=== PATIENT | female | born 1980 | race Caucasian/White ===

== ENCOUNTER 2016-10-12 16:44 | Emergency (ER) | payer SELFPAY ==
[2016-10-12 17:29] LABS: Basophils % (Auto) 0.2 % (0.0-1.8); Eosinophils % (Auto) 0.3 % (0.0-4.3); Hematocrit 40.7 % (30.3-42.9); Hemoglobin 13.6 gm/dl (10.1-14.3); Mean Corpuscular HGB Conc 33 % (30-34); Mean Corpuscular Hemoglobin 33 pg (28-32); Mean Corpuscular Volume 98 fl (79-97); Platelet Count 349 K/mm3 (140-440); Red Blood Count 4.16 M/mm3 (3.65-5.03); Red Cell Distribution Width 13.3 % (13.2-15.2); White Blood Count 12.4 K/mm3 (4.5-11.0)
[2016-10-12 17:40] LABS: BUN/Creatinine Ratio 8.88; Blood Urea Nitrogen 8 mg/dL (7-17); Calcium 9.6 mg/dL (8.4-10.2); Carbon Dioxide 26 mmol/L (22-30); Glucose 133 mg/dL (65-100)
[2016-10-12 17:41] LABS: Anion Gap 17 mmol/L; Chloride 95.5 mmol/L (98-107); Potassium 3.4 mmol/L (3.6-5.0); Sodium 135 mmol/L (137-145)
[2016-10-12] MEDS ORDERED: NACL 0.9% 1000 ML 1,000 ML IV ONE (22:59)
--- NOTE | 2016-10-12 23:03 | Emergency Department Report ---
HPI - General Chief Complaint: Chest Pain Time Seen by Provider: 10/12/16 22:39 - HPI HPI: This is a 35-year-old female presents to the emergency department by EMS from home with complaint of some midsternal chest pain and some shortness of breath that began earlier this morning. The patient says that she has been having this problem over the past 3-4 weeks but normally it is just very small quick spells. She denies any nausea, vomiting, fever, diaphoresis. She does not have any past medical or surgical history. She did not take anything for symptoms prior to presentation. She did not receive anything in route by EMS. Recent travel or sick contacts at home. She denies tobacco or drug abuse. Patient does have some anxiety and stress in her life right now as her mother is currently sick and in [place] with no one to take care of her and her grandmother is starting to deal with Alzheimer's dementia. ED Past Medical Hx - Past Medical History Hx Hypertension: No Hx Diabetes: No Hx Deep Vein Thrombosis: No Hx Renal Disease: No Hx Sickle Cell Disease: No Hx Seizures: No Hx Asthma: No Hx HIV: No - Social History Smoking Status: Never Smoker Substance Use Type: None ED Review of Systems ROS: Stated complaint: ANXIETY/CHEST PAIN Other details as noted in HPI Comment: All other systems reviewed and negative Constitutional: denies: chills, fever Eyes: denies: eye pain, eye discharge, vision change ENT: denies: ear pain, throat pain Respiratory: shortness of breath. denies: cough Cardiovascular: chest pain. denies: palpitations Gastrointestinal: denies: abdominal pain, nausea, diarrhea Genitourinary: denies: urgency, dysuria, discharge Musculoskeletal: denies: back pain, joint swelling, arthralgia Skin: denies: rash, lesions Neurological: denies: headache, weakness, paresthesias Psychiatric: anxiety. denies: suicidal thoughts Physical Exam - Physical Exam Vital Signs: Vital Signs 10/12/16 10/12/16 10/12/16 16:58 22:29 22:31 Temperature 98.1 F 98.2 F 98.1 F Pulse Rate 122 H 105 H 107 H Respiratory 22 20 19 Rate Blood Pressure 154/111 152/111 Blood Pressure 152/111 [Left] O2 Sat by Pulse 100 99 98 Oximetry Physical Exam: GENERAL: The patient is well-developed well-nourished. Patient appears slightly anxious. HEENT: Normocephalic. Atraumatic. Extraocular motions are intact. Patient has moist mucous membranes. Pupils equal reactive to light bilaterally. NECK: Supple. Trachea is midline. CHEST/LUNGS: Clear to auscultation. There is no respiratory distress noted. HEART/CARDIOVASCULAR: Regular. There is mild tachycardia. There is no gallop rub or murmur. ABDOMEN: Abdomen is soft, nontender. Patient has normal bowel sounds. There is no abdominal distention. SKIN: Skin is warm and dry. NEURO: The patient is awake, alert, and oriented. The patient is cooperative. The patient has no focal neurologic deficits. The patient has normal speech. MUSCULOSKELETAL: There is no tenderness or deformity. There is no limitation range of motion. There is no evidence of acute injury. ED Course Vital Signs 10/12/16 10/12/16 10/12/16 16:58 22:29 22:31 Temperature 98.1 F 98.2 F 98.1 F Pulse Rate 122 H 105 H 107 H Respiratory 22 20 19 Rate Blood Pressure 154/111 152/111 Blood Pressure 152/111 [Left] O2 Sat by Pulse 100 99 98 Oximetry ED Medical Decision Making - Lab Data Result diagrams: 10/12/16 17:07 10/12/16 17:07 - EKG Data -: EKG Interpreted by [place] EKG shows normal: sinus rhythm, axis, intervals, QRS complexes (Q waves to the septal leads), ST-T waves Rate: normal, tachycardia (121 bpm) - EKG Data When compared to previous EKG there are: previous EKG unavailable Interpretation: other (sinus tachycardia, normal axis, Q waves to the septal leads but no ST elevation [place].) - Radiology Data Radiology results: image reviewed interpreted by me: Chest x-ray did not show any acute process. Heart is normal shape and size. No effusions. No pneumothorax. No signs of pneumonia seen. - Medical Decision Making 35 year old female presents the emergency department with a complaint of some chest discomfort and occasional shortness of breath. Patient presents with tachycardia and appears anxious. EKG shows some sinus tachycardia but no signs of ST elevation [place] or significant dysrhythmia. Chest x-ray does not show any acute process. Patient's labs have been mostly unremarkable with negative troponins 3, negative d-dimer, normal thyroid function and no signs of infection. Patient was given some IV fluid and Toradol for discomfort. Upon reevaluation the patient says she is feeling greatly improved and all of her symptoms have resolved. Her vital signs were stable throughout ED course but the tachycardia resolved. The patient has no past medical history and is low on the SARINA score. She is low on the heart score. She appears safe for discharge home at this time. She was given referrals for primary care and will return to the ER with any worsening of her symptoms or any acute distress. - Differential Diagnosis WA, PE, hyperthyroidism, anxiety Critical Care Time: No Critical care attestation.: If time is entered above; I have spent that time in minutes in the direct care of this critically ill patient, excluding procedure time. ED Disposition Clinical Impression: Anxiety Chest pain Qualifiers: Chest pain type: unspecified Qualified Code(s): R07.9 - Chest pain, unspecified Hypertension Qualifiers: Hypertension type: essential hypertension Qualified Code(s): I10 - Essential ( primary) hypertension Disposition: DISCHARGED TO HOME OR SELFCARE Is pt being admited?: No Condition: Stable Instructions: Chest Pain (ED), Hypertension (ED) Additional Instructions: Please follow-up with a primary care doctor as soon as possible. Return to the emergency department with any worsening of your symptoms or any acute distress. Referrals: PRIMARY CARE, [Primary Care Provider] - 3-5 Days [facility] [Outside] - 3-5 Days [facility] [Outside] - 3-5 Days [facility] [Outside] - 3-5 Days Forms: Work/School Release Form(ED) Time of Disposition: 00:45
[2016-10-12] MEDS ORDERED: TORADOL IV ONE (23:38)
[2016-10-13 01:12] VITALS: BP 148/97
--- NOTE | 2016-10-13 08:51 | XRay Report ---
ROUTINE CHEST, TWO VIEWS: Chest pain. PA and lateral views demonstrate the heart and mediastinal contour to be of normal size and shape. The lungs are clear and fully expanded and the soft tissues and bony structures are normal. IMPRESSION: Normal study.
== END 2016-10-13 01:11 | disposition home or self-care (01) ==
LOC: ED 16:44
DX: I10 Essential (primary) hypertension (principal); F41.9 Anxiety disorder, unspecified; R07.9 Chest pain, unspecified
CPT/HCPCS: 36415; 71010; 80048; 84443; 84484; 84703; 85025; 85379; 93005; 93010; 96361; 96374; 99285; J1885; J7030

== ENCOUNTER 2020-04-22 07:21 | Inpatient (IN) | payer MEDICAID, OTHER ==
--- NOTE | 2020-04-22 10:05 | History and Physical Report ---
History of Present Illness Date of examination: 04/22/20 Date of admission: 04/22/20 07:21 Chief complaint: "I think my water broke" History of present illness: 39 y/o female presents to [facility] @ 40.1 wks with SROM cl fluid @ 5am today. She initiated her pnc @ [facility] at 26.6 wks. Her preg has been complicated by late care, suspected microcephaly, and GDM (diet controlled). She is AMA, rubella NI, pap with LSIL and GBS neg. Pt was admitted to L&D for . Past History Past Medical History: no pertinent history Past Surgical History: no surgical history [employer] History: abnormal PAP smear Family/Genetic History: diabetes, other (ANXIETY) Social history: no significant social history - Obstetrical History Expected Date of Delivery: 04/21/20 Actual Gestation: 40 Week(s) 1 Day(s) : 6 Para: 5 Hx # Term Pregnancies: 5 Number of Pregnancies: 0 Spontaneous Abortions: 0 Induced : 0 Number of Living Children: 5 Medications and Allergies Allergies Allergy/AdvReac Type Severity Reaction Status Date / Time No Known Allergies Allergy Verified 07/03/14 09:33 Home Medications Medication Instructions Recorded Confirmed Last Taken Type Vitamin 1 tab PO DAILY 04/22/20 04/22/20 04/21/20 20:00 History Review of Systems All systems: negative Eyes: deferred Ears, nose, mouth and throat: deferred Breasts: normal Genitourinary: normal appearance Rectal Exam: deferred - Vital Signs Vital signs: Vital Signs Pulse Pulse Ox 86 97 04/22/20 07:34 04/22/20 07:34 Temp Pulse Resp BP Pulse Ox 98.5 F 73 17 131/92 96 04/22/20 08:29 04/22/20 09:36 04/22/20 08:29 04/22/20 09:36 04/22/20 08:50 - Physical Exam Breasts: Positive: normal Abdomen: Positive: normal appearance, soft, other (GRAVID) Genitourinary (Female): Positive: normal external genitalia, normal perenium Vulva: both: normal Vagina: Positive: normal moisture Uterus: Positive: enlarged, other (GRAVID) Adnexa: both: normal Anus/Rectum: Positive: normal perianal skin Extremities: Positive: normal - Obstetrical FHR: auscultation normal, category 1 Uterine Contraction Monitor Mode: External Cervical Dilatation: 3 (PER NURSE) Cervical Effacement Percentage: 50 (PER NURSE) station: -3 Uterine Contraction Pattern: Irregular Uterine Tone Measurement Phase: Resting Uterine Contraction Intensity: Mild Results All other labs normal. Assessment and Plan A: IUP@ 40.1 wks with srom AMA,Rubella NI, GDM Suspected microcephaly p: Admit to L&D Start Pitocin per protocal FSBS AC and HS Continue monitoring Anticipate Notify NICU of status Offer Rubella vaccine pp - Patient Problems (1) Term Current Visit: Yes Status: Acute (2) AMA (advanced maternal age) multigravida 35+ Current Visit: Yes Status: Acute (3) microcephaly Current Visit: Yes Status: Acute (4) GDM (gestational diabetes mellitus) Current Visit: Yes Status: Acute (5) Abnormal Pap smear of cervix Current Visit: Yes Status: Acute
[2020-04-22 10:52] LABS: Hematocrit 30.1 % (30.3-42.9); Hemoglobin 10.4 gm/dl (10.1-14.3); Mean Corpuscular HGB Conc 35 % (30-34); Mean Corpuscular Volume 96 fl (79-97); Platelet Count 281 K/mm3 (140-440); Red Blood Count 3.12 M/mm3 (3.65-5.03); Red Cell Distribution Width 13.9 % (13.2-15.2)
[2020-04-22] MEDS ORDERED: BUTORPHANOL 2 MG/1 ML INJ IV PRN ×2 (11:00)
[2020-04-22] MEDS ORDERED: LIDOCAINE (2%) 20 MG/1 ML VIAL 20 ML MDV INFILTRATI SCH (11:00)
[2020-04-22] MEDS ORDERED: ePHEDrine SULFATE 50 MG/1 ML INJ IV PRN ×2 (11:00→19:15)
[2020-04-22] MEDS ORDERED: TERBUTALINE 1 MG/1 ML INJ SUB-Q PRN (11:00)
[2020-04-22] MEDS ORDERED: MINERAL OIL 30 ML ORAL LIQD PO PRN (11:00)
[2020-04-22] MEDS ORDERED: OXYTOCIN DRIP 30 UNITS/500 ML BAG IV SCH (11:00)
[2020-04-22] MEDS ORDERED: fentaNYL 100 MCG/2 ML INJ IV PRN (11:00)
[2020-04-22] MEDS: LACTATED RINGERS 1,000 ML IV SCH ×3 (11:10→23:43)
[2020-04-22 11:17] LABS: Alanine Aminotransferase 7 units/L (7-56); Albumin 3.2 g/dL (3.9-5); Blood Urea Nitrogen 6 mg/dL (7-17); Calcium 8.8 mg/dL (8.4-10.2); Hemolysis Index 4; Uric Acid 5.1 mg/dL (3.5-7.6)
[2020-04-22 11:23] LABS: BUN/Creatinine Ratio 10
[2020-04-22] MEDS ORDERED: NALOXONE 2 MG/2 ML INJ IV PRN (19:15)
--- NOTE | 2020-04-22 19:15 | Anesthesia Consultation ---
Anesthesia Consult and Med Hx Date of service: 04/22/20 - Airway Anesthetic Teeth Evaluation: Good ROM Head & Neck: Adequate Mental/Hyoid Distance: Adequate Mallampati Class: Class II Intubation Access Assessment: Probably Good - Pulmonary Exam CTA: Yes - Cardiac Exam Cardiac Exam: RRR - Pre-Operative Health Status ASA Pre-Surgery Classification: ASA3 Proposed Anesthetic Plan: Epidural - Pulmonary Hx Asthma: No Hx Pneumonia: No - Cardiovascular System Hx Hypertension: No - Central Nervous System Hx Seizures: No Hx Psychiatric Problems: No - Endocrine Hx Renal Disease: No Hx End Stage Renal Disease: No Hx Non-Insulin Dependent Diabetes: Yes Hx Hypothyroidism: No Hx Hyperthyroidism: No - Hematic Hx Anemia: No Hx Sickle Cell Disease: No - Other Systems Hx Alcohol Use: No
--- NOTE | 2020-04-22 19:49 | Progress Note ---
Labor Epidural - Labor Epidural Start Time: 19:35 Stop Time: 19:45 Performed by:: GILES GARCIA Procedure: Patient is requesting epidural for labor pain. H&P, and labs reviewed. Procedure explained, questions answered, consent obtained. Patient in sitting position with blood pressure cuff and pulse ox on and working. Timeout performed immediately before start of procedure. Sterile betadine prep/drape. 3 mL 1% lidocaine skin wheal at L[3]-L[4]. 18-gauge Xenoport epidural needle advanced to [id number] with saline at [7] cm. Epidural dexmedetomidine [30] mcg administered. Epidural catheter advanced to [12] cm, negative aspiration for blood and csf, negative test dose 3 ml 1.5% lidocaine with epinephrine. Sterile steri-strips and tegaderm applied, followed by tape reinforcement. Patient tolerated procedure well. Roni BEST
--- NOTE | 2020-04-22 19:54 | Progress Note ---
Assessment and Plan A: IUP @ 40.1 wks with srom cl fluid GDM P: Continue monitoring with Pitocin Pain med/ Epidural prn Anticipate - Patient Problems (1) Term Current Visit: Yes Status: Acute (2) AMA (advanced maternal age) multigravida 35+ Current Visit: Yes Status: Acute (3) microcephaly Current Visit: Yes Status: Acute (4) GDM (gestational diabetes mellitus) Current Visit: Yes Status: Acute (5) Abnormal Pap smear of cervix Current Visit: Yes Status: Acute Subjective - Subjective Date of service: 04/22/20 Principal diagnosis: IUP@ TERM Interval history: 39 y/o female presents to [facility] @ 40.1 wks with SROM cl fluid @ 5am today. She initiated her pnc @ [facility] at 26.6 wks. Her preg has been complicated by late care, suspected microcephaly, and GDM (diet controlled). She is AMA, rubella NI, pap with LSIL and GBS neg. Pt was admitted to L&D for . Patient reports: movement normal Objective - Vital Signs Vital Signs: Vital Signs - 12hr 04/22/20 04/22/20 04/22/20 07:54 07:59 08:04 Temperature Pulse Rate 85 88 83 Respiratory Rate Blood Pressure Blood Pressure [Right] O2 Sat by Pulse 97 97 97 Oximetry 04/22/20 04/22/20 04/22/20 08:29 08:30 08:31 Temperature 98.5 F Pulse Rate 83 77 81 Respiratory 17 Rate Blood Pressure 136/94 Blood Pressure 136/94 [Right] O2 Sat by Pulse 97 97 Oximetry 04/22/20 04/22/20 04/22/20 08:35 08:40 08:42 Temperature Pulse Rate 85 89 78 Respiratory Rate Blood Pressure Blood Pressure [Right] O2 Sat by Pulse 100 96 93 Oximetry 04/22/20 04/22/20 04/22/20 08:45 08:50 08:52 Temperature Pulse Rate 83 85 81 Respiratory Rate Blood Pressure 154/92 Blood Pressure [Right] O2 Sat by Pulse 93 96 Oximetry 04/22/20 04/22/20 04/22/20 09:06 09:21 09:36 Temperature Pulse Rate 79 85 73 Respiratory Rate Blood Pressure 129/72 137/92 131/92 Blood Pressure [Right] O2 Sat by Pulse Oximetry 04/22/20 04/22/20 04/22/20 09:51 10:05 10:22 Temperature Pulse Rate 75 84 80 Respiratory Rate Blood Pressure 137/83 132/93 138/73 Blood Pressure [Right] O2 Sat by Pulse Oximetry 04/22/20 04/22/20 04/22/20 11:19 11:20 11:24 Temperature 98.2 F Pulse Rate 86 86 79 Respiratory 16 Rate Blood Pressure 119/75 Blood Pressure 119/75 [Right] O2 Sat by Pulse 96 98 97 Oximetry 04/22/20 04/22/20 04/22/20 11:29 11:34 11:39 Temperature Pulse Rate 81 86 77 Respiratory Rate Blood Pressure Blood Pressure [Right] O2 Sat by Pulse 97 98 96 Oximetry 04/22/20 04/22/20 04/22/20 11:44 11:49 11:54 Temperature Pulse Rate 81 75 79 Respiratory Rate Blood Pressure Blood Pressure [Right] O2 Sat by Pulse 97 97 96 Oximetry 04/22/20 04/22/20 04/22/20 11:59 12:01 12:04 Temperature Pulse Rate 83 81 79 Respiratory Rate Blood Pressure 134/82 Blood Pressure [Right] O2 Sat by Pulse 98 97 Oximetry 04/22/20 04/22/20 04/22/20 12:09 12:14 12:19 Temperature Pulse Rate 83 76 80 Respiratory Rate Blood Pressure Blood Pressure [Right] O2 Sat by Pulse 98 97 97 Oximetry 04/22/20 04/22/20 04/22/20 12:24 12:30 12:35 Temperature Pulse Rate 90 81 86 Respiratory Rate Blood Pressure Blood Pressure [Right] O2 Sat by Pulse 98 94 97 Oximetry 04/22/20 04/22/20 04/22/20 12:40 12:45 12:50 Temperature Pulse Rate 79 79 77 Respiratory Rate Blood Pressure Blood Pressure [Right] O2 Sat by Pulse 96 95 95 Oximetry 04/22/20 04/22/20 04/22/20 12:54 12:55 13:00 Temperature Pulse Rate 76 79 71 Respiratory Rate Blood Pressure Blood Pressure [Right] O2 Sat by Pulse 94 95 96 Oximetry 04/22/20 04/22/20 04/22/20 13:01 13:05 13:10 Temperature Pulse Rate 74 74 74 Respiratory Rate Blood Pressure 126/74 Blood Pressure [Right] O2 Sat by Pulse 96 95 Oximetry 04/22/20 04/22/20 04/22/20 13:15 13:20 13:25 Temperature Pulse Rate 70 88 78 Respiratory Rate Blood Pressure Blood Pressure [Right] O2 Sat by Pulse 96 97 96 Oximetry 04/22/20 04/22/20 04/22/20 13:30 13:32 13:35 Temperature Pulse Rate 74 78 79 Respiratory Rate Blood Pressure Blood Pressure [Right] O2 Sat by Pulse 97 94 96 Oximetry 04/22/20 04/22/20 04/22/20 13:40 13:45 13:50 Temperature Pulse Rate 75 74 74 Respiratory Rate Blood Pressure Blood Pressure [Right] O2 Sat by Pulse 98 97 98 Oximetry 04/22/20 04/22/20 04/22/20 13:55 14:00 14:01 Temperature Pulse Rate 86 74 75 Respiratory Rate Blood Pressure 125/77 Blood Pressure [Right] O2 Sat by Pulse 97 97 Oximetry 04/22/20 04/22/20 04/22/20 14:05 14:10 14:15 Temperature Pulse Rate 77 75 72 Respiratory Rate Blood Pressure Blood Pressure [Right] O2 Sat by Pulse 97 98 97 Oximetry 04/22/20 04/22/20 04/22/20 14:20 14:22 14:25 Temperature Pulse Rate 75 107 H 76 Respiratory Rate Blood Pressure Blood Pressure [Right] O2 Sat by Pulse 96 86 97 Oximetry 04/22/20 04/22/20 04/22/20 14:30 14:35 14:39 Temperature Pulse Rate 72 74 25 L Respiratory Rate Blood Pressure Blood Pressure [Right] O2 Sat by Pulse 96 97 85 Oximetry 04/22/20 04/22/20 04/22/20 14:40 14:45 14:50 Temperature Pulse Rate 86 75 77 Respiratory Rate Blood Pressure Blood Pressure [Right] O2 Sat by Pulse 98 97 97 Oximetry 04/22/20 04/22/20 04/22/20 14:55 14:59 15:00 Temperature Pulse Rate 76 77 74 Respiratory Rate Blood Pressure Blood Pressure [Right] O2 Sat by Pulse 97 91 97 Oximetry 04/22/20 04/22/20 04/22/20 15:01 15:05 15:10 Temperature Pulse Rate 66 73 78 Respiratory Rate Blood Pressure 151/88 Blood Pressure [Right] O2 Sat by Pulse 93 92 Oximetry 04/22/20 04/22/20 04/22/20 15:15 15:20 15:25 Temperature Pulse Rate 72 71 79 Respiratory Rate Blood Pressure Blood Pressure [Right] O2 Sat by Pulse 97 87 96 Oximetry 04/22/20 04/22/20 04/22/20 15:30 15:35 15:40 Temperature Pulse Rate 77 73 76 Respiratory Rate Blood Pressure Blood Pressure [Right] O2 Sat by Pulse 98 98 97 Oximetry 04/22/20 04/22/20 04/22/20 15:45 15:50 15:59 Temperature Pulse Rate 75 81 81 Respiratory Rate Blood Pressure Blood Pressure [Right] O2 Sat by Pulse 97 96 96 Oximetry 04/22/20 04/22/20 04/22/20 16:01 16:04 16:09 Temperature Pulse Rate 71 81 72 Respiratory Rate Blood Pressure 140/78 Blood Pressure [Right] O2 Sat by Pulse 96 96 Oximetry 04/22/20 04/22/20 04/22/20 16:14 16:19 16:24 Temperature Pulse Rate 79 70 79 Respiratory Rate Blood Pressure Blood Pressure [Right] O2 Sat by Pulse 97 97 97 Oximetry 04/22/20 04/22/20 04/22/20 16:29 16:34 16:39 Temperature Pulse Rate 77 75 85 Respiratory Rate Blood Pressure Blood Pressure [Right] O2 Sat by Pulse 97 98 98 Oximetry 04/22/20 04/22/20 04/22/20 16:44 16:49 16:54 Temperature Pulse Rate 80 89 83 Respiratory Rate Blood Pressure Blood Pressure [Right] O2 Sat by Pulse 97 98 96 Oximetry 04/22/20 04/22/20 04/22/20 17:22 17:23 17:27 Temperature Pulse Rate 84 87 100 H Respiratory Rate Blood Pressure 154/88 Blood Pressure [Right] O2 Sat by Pulse 98 97 Oximetry 04/22/20 04/22/20 04/22/20 17:32 17:37 17:42 Temperature Pulse Rate 80 89 82 Respiratory Rate Blood Pressure Blood Pressure [Right] O2 Sat by Pulse 96 99 99 Oximetry 04/22/20 04/22/20 04/22/20 17:46 17:47 17:52 Temperature Pulse Rate 76 90 85 Respiratory Rate Blood Pressure Blood Pressure [Right] O2 Sat by Pulse 85 99 97 Oximetry 04/22/20 04/22/20 04/22/20 17:57 18:00 18:02 Temperature Pulse Rate 84 83 88 Respiratory Rate Blood Pressure 142/79 Blood Pressure [Right] O2 Sat by Pulse 97 94 98 Oximetry 04/22/20 04/22/20 04/22/20 18:09 18:14 18:19 Temperature Pulse Rate 87 81 81 Respiratory Rate Blood Pressure Blood Pressure [Right] O2 Sat by Pulse 99 98 98 Oximetry 04/22/20 04/22/20 04/22/20 18:24 18:29 18:34 Temperature Pulse Rate 81 84 80 Respiratory Rate Blood Pressure Blood Pressure [Right] O2 Sat by Pulse 100 100 100 Oximetry 04/22/20 04/22/20 04/22/20 18:39 18:44 18:49 Temperature Pulse Rate 82 84 86 Respiratory Rate Blood Pressure Blood Pressure [Right] O2 Sat by Pulse 100 100 100 Oximetry 04/22/20 04/22/20 04/22/20 18:54 18:59 19:01 Temperature Pulse Rate 88 90 86 Respiratory Rate Blood Pressure 134/65 Blood Pressure [Right] O2 Sat by Pulse 100 100 Oximetry 04/22/20 04/22/20 04/22/20 19:03 19:08 19:13 Temperature Pulse Rate 88 102 H 98 H Respiratory Rate Blood Pressure Blood Pressure [Right] O2 Sat by Pulse 84 98 98 Oximetry 04/22/20 04/22/20 04/22/20 19:18 19:23 19:28 Temperature Pulse Rate 92 H 116 H 114 H Respiratory Rate Blood Pressure Blood Pressure [Right] O2 Sat by Pulse 100 98 99 Oximetry 04/22/20 04/22/20 04/22/20 19:30 19:33 19:34 Temperature Pulse Rate 121 H 129 H 126 H Respiratory Rate Blood Pressure 160/91 177/101 176/100 Blood Pressure [Right] O2 Sat by Pulse 99 Oximetry 04/22/20 04/22/20 04/22/20 19:35 19:37 19:38 Temperature Pulse Rate 114 H 111 H 106 H Respiratory Rate Blood Pressure 173/88 164/81 Blood Pressure [Right] O2 Sat by Pulse 98 Oximetry 04/22/20 04/22/20 04/22/20 19:40 19:43 19:45 Temperature Pulse Rate 98 H 98 H 100 H Respiratory Rate Blood Pressure 163/81 133/76 134/79 Blood Pressure [Right] O2 Sat by Pulse 98 Oximetry 04/22/20 04/22/20 19:47 19:48 Temperature Pulse Rate 96 H 93 H Respiratory Rate Blood Pressure 118/68 113/65 Blood Pressure [Right] O2 Sat by Pulse 98 Oximetry - Exam Breasts: deferred Abdomen: Present: normal appearance, soft Vulva: both: normal Uterus: Present: normal FHR: auscultation normal, category 1 Uterine Contraction Monitor Mode: External Cervical Dilatation: 4 Cervical Effacement Percentage: 90 station: -3 Uterine Contraction Pattern: Irregular Uterine Tone Measurement Phase: Resting Uterine Contraction Intensity: Moderate Extremities: normal - Labs Labs: Abnormal Labs 04/22/20 04/22/20 10:30 10:30 RBC 3.12 L Hct 30.1 L MCH 34 H MCHC 35 H Sodium 134 L BUN 6 L Alkaline Phosphatase 134 H Albumin 3.2 L Laboratory Results - last 24 hr 04/22/20 04/22/20 04/22/20 08:00 10:30 10:30 WBC 8.4 RBC 3.12 L Hgb 10.4 Hct 30.1 L MCV 96 MCH 34 H MCHC 35 H RDW 13.9 Plt Count 281 Sodium 134 L Potassium 3.6 Chloride 101.0 Carbon Dioxide 22 Anion Gap 15 BUN 6 L Creatinine 0.6 Estimated GFR > 60 BUN/Creatinine Ratio 10 Glucose 95 Uric Acid 5.1 Calcium 8.8 Total Bilirubin 0.20 AST 12 ALT 7 Alkaline Phosphatase 134 H Total Protein 6.6 Albumin 3.2 L Albumin/Globulin Ratio 0.9 Blood Type O POSITIVE Antibody Screen Negative
[2020-04-22] MEDS ORDERED: fentaNYL-BUPIV 2 MCG/ML-0.125% 200 MCG/100 ML BAG EPIDURAL SCH (20:00)
--- NOTE | 2020-04-22 21:34 | Progress Note ---
Assessment and Plan A: IUP@ 40.1 wks GDM CAT II FHT p: O2 via FM Position changes IUPC placed; will start an amniofusion Dr Lozada notified Continue monitoring Anticipate - Patient Problems (1) Term Current Visit: Yes Status: Acute (2) AMA (advanced maternal age) multigravida 35+ Current Visit: Yes Status: Acute (3) microcephaly Current Visit: Yes Status: Acute (4) GDM (gestational diabetes mellitus) Current Visit: Yes Status: Acute (5) Abnormal Pap smear of cervix Current Visit: Yes Status: Acute Subjective - Subjective Date of service: 04/22/20 Principal diagnosis: IUP@ TERM Interval history: 39 y/o female presents to [facility] @ 40.1 wks with SROM cl fluid @ 5am today. She initiated her pnc @ [facility] at 26.6 wks. Her preg has been complicated by late care, suspected microcephaly, and GDM (diet controlled). She is AMA, rubella NI, pap with LSIL and GBS neg. Pt was admitted to L&D for . Patient reports: movement normal Objective - Vital Signs Vital Signs: Vital Signs - 12hr 04/22/20 04/22/20 04/22/20 09:36 09:51 10:05 Temperature Pulse Rate 73 75 84 Respiratory Rate Blood Pressure 131/92 137/83 132/93 Blood Pressure [Right] O2 Sat by Pulse Oximetry 04/22/20 04/22/20 04/22/20 10:22 11:19 11:20 Temperature 98.2 F Pulse Rate 80 86 86 Respiratory 16 Rate Blood Pressure 138/73 119/75 Blood Pressure 119/75 [Right] O2 Sat by Pulse 96 98 Oximetry 04/22/20 04/22/20 04/22/20 11:24 11:29 11:34 Temperature Pulse Rate 79 81 86 Respiratory Rate Blood Pressure Blood Pressure [Right] O2 Sat by Pulse 97 97 98 Oximetry 04/22/20 04/22/20 04/22/20 11:39 11:44 11:49 Temperature Pulse Rate 77 81 75 Respiratory Rate Blood Pressure Blood Pressure [Right] O2 Sat by Pulse 96 97 97 Oximetry 04/22/20 04/22/20 04/22/20 11:54 11:59 12:01 Temperature Pulse Rate 79 83 81 Respiratory Rate Blood Pressure 134/82 Blood Pressure [Right] O2 Sat by Pulse 96 98 Oximetry 04/22/20 04/22/20 04/22/20 12:04 12:09 12:14 Temperature Pulse Rate 79 83 76 Respiratory Rate Blood Pressure Blood Pressure [Right] O2 Sat by Pulse 97 98 97 Oximetry 04/22/20 04/22/20 04/22/20 12:19 12:24 12:30 Temperature Pulse Rate 80 90 81 Respiratory Rate Blood Pressure Blood Pressure [Right] O2 Sat by Pulse 97 98 94 Oximetry 04/22/20 04/22/20 04/22/20 12:35 12:40 12:45 Temperature Pulse Rate 86 79 79 Respiratory Rate Blood Pressure Blood Pressure [Right] O2 Sat by Pulse 97 96 95 Oximetry 04/22/20 04/22/20 04/22/20 12:50 12:54 12:55 Temperature Pulse Rate 77 76 79 Respiratory Rate Blood Pressure Blood Pressure [Right] O2 Sat by Pulse 95 94 95 Oximetry 04/22/20 04/22/20 04/22/20 13:00 13:01 13:05 Temperature Pulse Rate 71 74 74 Respiratory Rate Blood Pressure 126/74 Blood Pressure [Right] O2 Sat by Pulse 96 96 Oximetry 04/22/20 04/22/20 04/22/20 13:10 13:15 13:20 Temperature Pulse Rate 74 70 88 Respiratory Rate Blood Pressure Blood Pressure [Right] O2 Sat by Pulse 95 96 97 Oximetry 04/22/20 04/22/20 04/22/20 13:25 13:30 13:32 Temperature Pulse Rate 78 74 78 Respiratory Rate Blood Pressure Blood Pressure [Right] O2 Sat by Pulse 96 97 94 Oximetry 04/22/20 04/22/20 04/22/20 13:35 13:40 13:45 Temperature Pulse Rate 79 75 74 Respiratory Rate Blood Pressure Blood Pressure [Right] O2 Sat by Pulse 96 98 97 Oximetry 04/22/20 04/22/20 04/22/20 13:50 13:55 14:00 Temperature Pulse Rate 74 86 74 Respiratory Rate Blood Pressure Blood Pressure [Right] O2 Sat by Pulse 98 97 97 Oximetry 04/22/20 04/22/20 04/22/20 14:01 14:05 14:10 Temperature Pulse Rate 75 77 75 Respiratory Rate Blood Pressure 125/77 Blood Pressure [Right] O2 Sat by Pulse 97 98 Oximetry 04/22/20 04/22/20 04/22/20 14:15 14:20 14:22 Temperature Pulse Rate 72 75 107 H Respiratory Rate Blood Pressure Blood Pressure [Right] O2 Sat by Pulse 97 96 86 Oximetry 04/22/20 04/22/20 04/22/20 14:25 14:30 14:35 Temperature Pulse Rate 76 72 74 Respiratory Rate Blood Pressure Blood Pressure [Right] O2 Sat by Pulse 97 96 97 Oximetry 04/22/20 04/22/20 04/22/20 14:39 14:40 14:45 Temperature Pulse Rate 25 L 86 75 Respiratory Rate Blood Pressure Blood Pressure [Right] O2 Sat by Pulse 85 98 97 Oximetry 04/22/20 04/22/20 04/22/20 14:50 14:55 14:59 Temperature Pulse Rate 77 76 77 Respiratory Rate Blood Pressure Blood Pressure [Right] O2 Sat by Pulse 97 97 91 Oximetry 04/22/20 04/22/20 04/22/20 15:00 15:01 15:05 Temperature Pulse Rate 74 66 73 Respiratory Rate Blood Pressure 151/88 Blood Pressure [Right] O2 Sat by Pulse 97 93 Oximetry 04/22/20 04/22/20 04/22/20 15:10 15:15 15:20 Temperature Pulse Rate 78 72 71 Respiratory Rate Blood Pressure Blood Pressure [Right] O2 Sat by Pulse 92 97 87 Oximetry 04/22/20 04/22/20 04/22/20 15:25 15:30 15:35 Temperature Pulse Rate 79 77 73 Respiratory Rate Blood Pressure Blood Pressure [Right] O2 Sat by Pulse 96 98 98 Oximetry 04/22/20 04/22/20 04/22/20 15:40 15:45 15:50 Temperature Pulse Rate 76 75 81 Respiratory Rate Blood Pressure Blood Pressure [Right] O2 Sat by Pulse 97 97 96 Oximetry 04/22/20 04/22/20 04/22/20 15:59 16:01 16:04 Temperature Pulse Rate 81 71 81 Respiratory Rate Blood Pressure 140/78 Blood Pressure [Right] O2 Sat by Pulse 96 96 Oximetry 04/22/20 04/22/20 04/22/20 16:09 16:14 16:19 Temperature Pulse Rate 72 79 70 Respiratory Rate Blood Pressure Blood Pressure [Right] O2 Sat by Pulse 96 97 97 Oximetry 1104/22/20 04/22/20 16:24 16:29 16:34 Temperature Pulse Rate 79 77 75 Respiratory Rate Blood Pressure Blood Pressure [Right] O2 Sat by Pulse 97 97 98 Oximetry 04/22/20 04/22/20 04/22/20 16:39 16:44 16:49 Temperature Pulse Rate 85 80 89 Respiratory Rate Blood Pressure Blood Pressure [Right] O2 Sat by Pulse 98 97 98 Oximetry 04/22/20 04/22/20 04/22/20 16:54 17:22 17:23 Temperature Pulse Rate 83 84 87 Respiratory Rate Blood Pressure 154/88 Blood Pressure [Right] O2 Sat by Pulse 96 98 Oximetry 04/22/20 04/22/20 04/22/20 17:27 17:32 17:37 Temperature Pulse Rate 100 H 80 89 Respiratory Rate Blood Pressure Blood Pressure [Right] O2 Sat by Pulse 97 96 99 Oximetry 04/22/20 04/22/20 04/22/20 17:42 17:46 17:47 Temperature Pulse Rate 82 76 90 Respiratory Rate Blood Pressure Blood Pressure [Right] O2 Sat by Pulse 99 85 99 Oximetry 04/22/20 04/22/20 04/22/20 17:52 17:57 18:00 Temperature Pulse Rate 85 84 83 Respiratory Rate Blood Pressure Blood Pressure [Right] O2 Sat by Pulse 97 97 94 Oximetry 04/22/20 04/22/20 04/22/20 18:02 18:09 18:14 Temperature Pulse Rate 88 87 81 Respiratory Rate Blood Pressure 142/79 Blood Pressure [Right] O2 Sat by Pulse 98 99 98 Oximetry 04/22/20 04/22/20 04/22/20 18:19 18:24 18:29 Temperature Pulse Rate 81 81 84 Respiratory Rate Blood Pressure Blood Pressure [Right] O2 Sat by Pulse 98 100 100 Oximetry 04/22/20 04/22/20 04/22/20 18:34 18:39 18:44 Temperature Pulse Rate 80 82 84 Respiratory Rate Blood Pressure Blood Pressure [Right] O2 Sat by Pulse 100 100 100 Oximetry 04/22/20 04/22/20 04/22/20 18:49 18:54 18:59 Temperature Pulse Rate 86 88 90 Respiratory Rate Blood Pressure Blood Pressure [Right] O2 Sat by Pulse 100 100 100 Oximetry 04/22/20 04/22/20 04/22/20 19:01 19:03 19:08 Temperature Pulse Rate 86 88 102 H Respiratory Rate Blood Pressure 134/65 Blood Pressure [Right] O2 Sat by Pulse 84 98 Oximetry 04/22/20 04/22/20 04/22/20 19:13 19:18 19:23 Temperature Pulse Rate 98 H 92 H 116 H Respiratory Rate Blood Pressure Blood Pressure [Right] O2 Sat by Pulse 98 100 98 Oximetry 04/22/20 04/22/20 04/22/20 19:28 19:30 19:33 Temperature Pulse Rate 114 H 121 H 129 H Respiratory Rate Blood Pressure 160/91 177/101 Blood Pressure [Right] O2 Sat by Pulse 99 99 Oximetry 04/22/20 04/22/20 04/22/20 19:34 19:35 19:37 Temperature Pulse Rate 126 H 114 H 111 H Respiratory Rate Blood Pressure 176/100 173/88 164/81 Blood Pressure [Right] O2 Sat by Pulse Oximetry 04/22/20 04/22/20 04/22/20 19:38 19:40 19:43 Temperature Pulse Rate 106 H 98 H 98 H Respiratory Rate Blood Pressure 163/81 133/76 Blood Pressure [Right] O2 Sat by Pulse 98 98 Oximetry 04/22/20 04/22/20 04/22/20 19:45 19:47 19:48 Temperature Pulse Rate 100 H 96 H 93 H Respiratory Rate Blood Pressure 134/79 118/68 113/65 Blood Pressure [Right] O2 Sat by Pulse 98 Oximetry 04/22/20 04/22/20 04/22/20 19:51 19:53 19:55 Temperature Pulse Rate 86 82 85 Respiratory Rate Blood Pressure 121/71 105/62 99/59 Blood Pressure [Right] O2 Sat by Pulse 98 Oximetry 04/22/20 04/22/20 04/22/20 19:57 19:58 19:59 Temperature Pulse Rate 80 99 H 97 H Respiratory Rate Blood Pressure 109/58 94/55 Blood Pressure [Right] O2 Sat by Pulse 100 Oximetry 04/22/20 04/22/20 04/22/20 20:03 20:05 20:07 Temperature Pulse Rate 111 H 84 93 H Respiratory Rate Blood Pressure 106/56 118/58 109/55 Blood Pressure [Right] O2 Sat by Pulse 100 Oximetry 04/22/20 04/22/20 04/22/20 20:08 20:09 20:10 Temperature Pulse Rate 96 H 96 H 82 Respiratory Rate Blood Pressure 109/59 119/60 Blood Pressure [Right] O2 Sat by Pulse 100 Oximetry 04/22/20 04/22/20 04/22/20 20:13 20:15 20:18 Temperature Pulse Rate 97 H 88 86 Respiratory Rate Blood Pressure 104/55 115/64 Blood Pressure [Right] O2 Sat by Pulse 100 99 Oximetry 04/22/20 04/22/20 04/22/20 20:21 20:23 20:25 Temperature Pulse Rate 98 H 103 H 109 H Respiratory Rate Blood Pressure 123/73 112/66 125/65 Blood Pressure [Right] O2 Sat by Pulse 99 Oximetry 04/22/20 04/22/20 04/22/20 20:28 20:29 20:31 Temperature Pulse Rate 102 H 89 93 H Respiratory Rate Blood Pressure 125/61 110/58 Blood Pressure [Right] O2 Sat by Pulse 100 Oximetry 04/22/20 04/22/20 04/22/20 20:33 20:38 20:43 Temperature Pulse Rate 102 H 101 H 92 H Respiratory Rate Blood Pressure Blood Pressure [Right] O2 Sat by Pulse 100 100 100 Oximetry 04/22/20 04/22/20 04/22/20 20:45 20:48 20:53 Temperature Pulse Rate 85 97 H 93 H Respiratory Rate Blood Pressure Blood Pressure [Right] O2 Sat by Pulse 91 99 98 Oximetry 04/22/20 04/22/20 04/22/20 20:56 20:58 21:03 Temperature Pulse Rate 98 H 96 H 106 H Respiratory Rate Blood Pressure 115/72 Blood Pressure [Right] O2 Sat by Pulse 91 94 100 Oximetry 04/22/20 04/22/20 04/22/20 21:08 21:13 21:17 Temperature Pulse Rate 101 H 113 H 106 H Respiratory Rate Blood Pressure 106/53 Blood Pressure [Right] O2 Sat by Pulse 100 100 Oximetry 04/22/20 04/22/20 04/22/20 21:18 21:19 21:23 Temperature Pulse Rate 96 H 95 H 101 H Respiratory Rate Blood Pressure Blood Pressure [Right] O2 Sat by Pulse 95 87 98 Oximetry - Exam Breasts: deferred Abdomen: Present: normal appearance, soft Vulva: both: normal Uterus: Present: normal FHR: category 2 FHR comments: FHR with recurrent varibles with mod cristiane. Uterine Contraction Monitor Mode: Internal Cervical Dilatation: 5 Cervical Effacement Percentage: 90 station: -2 Uterine Contraction Frequency (min): q3-5 Uterine Contraction Pattern: Regular Uterine Tone Measurement Phase: Resting Uterine Contraction Intensity: Strong/Firm Extremities: normal - Labs Labs: Abnormal Labs 04/22/20 04/22/20 10:30 10:30 RBC 3.12 L Hct 30.1 L MCH 34 H MCHC 35 H Sodium 134 L BUN 6 L Alkaline Phosphatase 134 H Albumin 3.2 L Laboratory Results - last 24 hr 04/22/20 04/22/20 04/22/20 08:00 10:30 10:30 WBC 8.4 RBC 3.12 L Hgb 10.4 Hct 30.1 L MCV 96 MCH 34 H MCHC 35 H RDW 13.9 Plt Count 281 Sodium 134 L Potassium 3.6 Chloride 101.0 Carbon Dioxide 22 Anion Gap 15 BUN 6 L Creatinine 0.6 Estimated GFR > 60 BUN/Creatinine Ratio 10 Glucose 95 Uric Acid 5.1 Calcium 8.8 Total Bilirubin 0.20 AST 12 ALT 7 Alkaline Phosphatase 134 H Total Protein 6.6 Albumin 3.2 L Albumin/Globulin Ratio 0.9 Blood Type O POSITIVE Antibody Screen Negative
[2020-04-22] MEDS ORDERED: SODIUM CHLORIDE 0.9% 1000 ML 1,000 ML VG SCH (21:45)
--- NOTE | 2020-04-22 22:59 | Progress Note ---
Assessment and Plan A: IUP@ term GDM p: IFM placed and Pitocin turned off Dr Lozada in to review FHT Will cont Amnio and restart Pitocin latter Cont monitoring Anticipate - Patient Problems (1) Term Current Visit: Yes Status: Acute (2) AMA (advanced maternal age) multigravida 35+ Current Visit: Yes Status: Acute (3) microcephaly Current Visit: Yes Status: Acute (4) GDM (gestational diabetes mellitus) Current Visit: Yes Status: Acute (5) Abnormal Pap smear of cervix Current Visit: Yes Status: Acute Subjective - Subjective Date of service: 04/22/20 Principal diagnosis: IUP@ TERM Interval history: 39 y/o female presents to [facility] @ 40.1 wks with SROM cl fluid @ 5am today. She initiated her pnc @ [facility] at 26.6 wks. Her preg has been complicated by late care, suspected microcephaly, and GDM (diet con trolled). She is AMA, rubella NI, pap with LSIL and GBS neg. Pt was admitted to L&D for . Patient reports: movement normal Objective - Vital Signs Vital Signs: Vital Signs - 12hr 04/22/20 04/22/20 04/22/20 11:19 11:20 11:24 Temperature 98.2 F Pulse Rate 86 86 79 Respiratory 16 Rate Blood Pressure 119/75 Blood Pressure 119/75 [Right] O2 Sat by Pulse 96 98 97 Oximetry 04/22/20 04/22/20 04/22/20 11:29 11:34 11:39 Temperature Pulse Rate 81 86 77 Respiratory Rate Blood Pressure Blood Pressure [Right] O2 Sat by Pulse 97 98 96 Oximetry 04/22/20 04/22/20 04/22/20 11:44 11:49 11:54 Temperature Pulse Rate 81 75 79 Respiratory Rate Blood Pressure Blood Pressure [Right] O2 Sat by Pulse 97 97 96 Oximetry 04/22/20 04/22/20 04/22/20 11:59 12:01 12:04 Temperature Pulse Rate 83 81 79 Respiratory Rate Blood Pressure 134/82 Blood Pressure [Right] O2 Sat by Pulse 98 97 Oximetry 04/22/20 04/22/20 04/22/20 12:09 12:14 12:19 Temperature Pulse Rate 83 76 80 Respiratory Rate Blood Pressure Blood Pressure [Right] O2 Sat by Pulse 98 97 97 Oximetry 04/22/20 04/22/20 04/22/20 12:24 12:30 12:35 Temperature Pulse Rate 90 81 86 Respiratory Rate Blood Pressure Blood Pressure [Right] O2 Sat by Pulse 98 94 97 Oximetry 04/22/20 04/22/20 04/22/20 12:40 12:45 12:50 Temperature Pulse Rate 79 79 77 Respiratory Rate Blood Pressure Blood Pressure [Right] O2 Sat by Pulse 96 95 95 Oximetry 04/22/20 04/22/20 04/22/20 12:54 12:55 13:00 Temperature Pulse Rate 76 79 71 Respiratory Rate Blood Pressure Blood Pressure [Right] O2 Sat by Pulse 94 95 96 Oximetry 04/22/20 04/22/20 04/22/20 13:01 13:05 13:10 Temperature Pulse Rate 74 74 74 Respiratory Rate Blood Pressure 126/74 Blood Pressure [Right] O2 Sat by Pulse 96 95 Oximetry 04/22/20 04/22/20 04/22/20 13:15 13:20 13:25 Temperature Pulse Rate 70 88 78 Respiratory Rate Blood Pressure Blood Pressure [Right] O2 Sat by Pulse 96 97 96 Oximetry 04/22/20 04/22/20 04/22/20 13:30 13:32 13:35 Temperature Pulse Rate 74 78 79 Respiratory Rate Blood Pressure Blood Pressure [Right] O2 Sat by Pulse 97 94 96 Oximetry 04/22/20 04/22/20 04/22/20 13:40 13:45 13:50 Temperature Pulse Rate 75 74 74 Respiratory Rate Blood Pressure Blood Pressure [Right] O2 Sat by Pulse 98 97 98 Oximetry 04/22/20 04/22/20 04/22/20 13:55 14:00 14:01 Temperature Pulse Rate 86 74 75 Respiratory Rate Blood Pressure 125/77 Blood Pressure [Right] O2 Sat by Pulse 97 97 Oximetry 04/22/20 04/22/20 04/22/20 14:05 14:10 14:15 Temperature Pulse Rate 77 75 72 Respiratory Rate Blood Pressure Blood Pressure [Right] O2 Sat by Pulse 97 98 97 Oximetry 04/22/20 04/22/20 04/22/20 14:20 14:22 14:25 Temperature Pulse Rate 75 107 H 76 Respiratory Rate Blood Pressure Blood Pressure [Right] O2 Sat by Pulse 96 86 97 Oximetry 04/22/20 04/22/20 04/22/20 14:30 14:35 14:39 Temperature Pulse Rate 72 74 25 L Respiratory Rate Blood Pressure Blood Pressure [Right] O2 Sat by Pulse 96 97 85 Oximetry 04/22/20 04/22/20 04/22/20 14:40 14:45 14:50 Temperature Pulse Rate 86 75 77 Respiratory Rate Blood Pressure Blood Pressure [Right] O2 Sat by Pulse 98 97 97 Oximetry 04/22/20 04/22/20 04/22/20 14:55 14:59 15:00 Temperature Pulse Rate 76 77 74 Respiratory Rate Blood Pressure Blood Pressure [Right] O2 Sat by Pulse 97 91 97 Oximetry 04/22/20 04/22/20 04/22/20 15:01 15:05 15:10 Temperature Pulse Rate 66 73 78 Respiratory Rate Blood Pressure 151/88 Blood Pressure [Right] O2 Sat by Pulse 93 92 Oximetry 04/22/20 04/22/20 04/22/20 15:15 15:20 15:25 Temperature Pulse Rate 72 71 79 Respiratory Rate Blood Pressure Blood Pressure [Right] O2 Sat by Pulse 97 87 96 Oximetry 04/22/20 04/22/20 04/22/20 15:30 15:35 15:40 Temperature Pulse Rate 77 73 76 Respiratory Rate Blood Pressure Blood Pressure [Right] O2 Sat by Pulse 98 98 97 Oximetry 04/22/20 04/22/20 04/22/20 15:45 15:50 15:59 Temperature Pulse Rate 75 81 81 Respiratory Rate Blood Pressure Blood Pressure [Right] O2 Sat by Pulse 97 96 96 Oximetry 04/22/20 04/22/20 04/22/20 16:01 16:04 16:09 Temperature Pulse Rate 71 81 72 Respiratory Rate Blood Pressure 140/78 Blood Pressure [Right] O2 Sat by Pulse 96 96 Oximetry 04/22/20 04/22/20 04/22/20 16:14 16:19 16:24 Temperature Pulse Rate 79 70 79 Respiratory Rate Blood Pressure Blood Pressure [Right] O2 Sat by Pulse 97 97 97 Oximetry 04/22/20 04/22/20 04/22/20 16:29 16:34 16:39 Temperature Pulse Rate 77 75 85 Respiratory Rate Blood Pressure Blood Pressure [Right] O2 Sat by Pulse 97 98 98 Oximetry 04/22/20 04/22/20 04/22/20 16:44 16:49 16:54 Temperature Pulse Rate 80 89 83 Respiratory Rate Blood Pressure Blood Pressure [Right] O2 Sat by Pulse 97 98 96 Oximetry 04/22/20 04/22/20 04/22/20 17:22 17:23 17:27 Temperature Pulse Rate 84 87 100 H Respiratory Rate Blood Pressure 154/88 Blood Pressure [Right] O2 Sat by Pulse 98 97 Oximetry 04/22/20 04/22/20 04/22/20 17:32 17:37 17:42 Temperature Pulse Rate 80 89 82 Respiratory Rate Blood Pressure Blood Pressure [Right] O2 Sat by Pulse 96 99 99 Oximetry 04/22/20 04/22/20 04/22/20 17:46 17:47 17:52 Temperature Pulse Rate 76 90 85 Respiratory Rate Blood Pressure Blood Pressure [Right] O2 Sat by Pulse 85 99 97 Oximetry 04/22/20 04/22/20 04/22/20 17:57 18:00 18:02 Temperature Pulse Rate 84 83 88 Respiratory Rate Blood Pressure 142/79 Blood Pressure [Right] O2 Sat by Pulse 97 94 98 Oximetry 04/22/20 04/22/20 04/22/20 18:09 18:14 18:19 Temperature Pulse Rate 87 81 81 Respiratory Rate Blood Pressure Blood Pressure [Right] O2 Sat by Pulse 99 98 98 Oximetry 04/22/20 04/22/20 04/22/20 18:24 18:29 18:34 Temperature Pulse Rate 81 84 80 Respiratory Rate Blood Pressure Blood Pressure [Right] O2 Sat by Pulse 100 100 100 Oximetry 04/22/20 04/22/20 04/22/20 18:39 18:44 18:49 Temperature Pulse Rate 82 84 86 Respiratory Rate Blood Pressure Blood Pressure [Right] O2 Sat by Pulse 100 100 100 Oximetry 04/22/20 04/22/20 04/22/20 18:54 18:59 19:01 Temperature Pulse Rate 88 90 86 Respiratory Rate Blood Pressure 134/65 Blood Pressure [Right] O2 Sat by Pulse 100 100 Oximetry 04/22/20 04/22/20 04/22/20 19:03 19:08 19:13 Temperature Pulse Rate 88 102 H 98 H Respiratory Rate Blood Pressure Blood Pressure [Right] O2 Sat by Pulse 84 98 98 Oximetry 04/22/20 04/22/20 04/22/20 19:18 19:23 19:28 Temperature Pulse Rate 92 H 116 H 114 H Respiratory Rate Blood Pressure Blood Pressure [Right] O2 Sat by Pulse 100 98 99 Oximetry 04/22/20 04/22/20 04/22/20 19:30 19:33 19:34 Temperature Pulse Rate 121 H 129 H 126 H Respiratory Rate Blood Pressure 160/91 177/101 176/100 Blood Pressure [Right] O2 Sat by Pulse 99 Oximetry 04/22/20 04/22/20 04/22/20 19:35 19:37 19:38 Temperature Pulse Rate 114 H 111 H 106 H Respiratory Rate Blood Pressure 173/88 164/81 Blood Pressure [Right] O2 Sat by Pulse 98 Oximetry 04/22/20 04/22/20 04/22/20 19:40 19:43 19:45 Temperature Pulse Rate 98 H 98 H 100 H Respiratory Rate Blood Pressure 163/81 133/76 134/79 Blood Pressure [Right] O2 Sat by Pulse 98 Oximetry 04/22/20 04/22/20 04/22/20 19:47 19:48 19:51 Temperature Pulse Rate 96 H 93 H 86 Respiratory Rate Blood Pressure 118/68 113/65 121/71 Blood Pressure [Right] O2 Sat by Pulse 98 Oximetry 04/22/20 04/22/20 04/22/20 19:53 19:55 19:57 Temperature Pulse Rate 82 85 80 Respiratory Rate Blood Pressure 105/62 99/59 109/58 Blood Pressure [Right] O2 Sat by Pulse 98 Oximetry 04/22/20 04/22/20 04/22/20 19:58 19:59 20:03 Temperature Pulse Rate 99 H 97 H 111 H Respiratory Rate Blood Pressure 94/55 106/56 Blood Pressure [Right] O2 Sat by Pulse 100 100 Oximetry 04/22/20 04/22/20 04/22/20 20:05 20:07 20:08 Temperature Pulse Rate 84 93 H 96 H Respiratory Rate Blood Pressure 118/58 109/55 Blood Pressure [Right] O2 Sat by Pulse 100 Oximetry 04/22/20 04/22/20 04/22/20 20:09 20:10 20:13 Temperature Pulse Rate 96 H 82 97 H Respiratory Rate Blood Pressure 109/59 119/60 104/55 Blood Pressure [Right] O2 Sat by Pulse 100 Oximetry 04/22/20 04/22/20 04/22/20 20:15 20:18 20:21 Temperature Pulse Rate 88 86 98 H Respiratory Rate Blood Pressure 115/64 123/73 Blood Pressure [Right] O2 Sat by Pulse 99 Oximetry 04/22/20 04/22/20 04/22/20 20:23 20:25 20:28 Temperature Pulse Rate 103 H 109 H 102 H Respiratory Rate Blood Pressure 112/66 125/65 Blood Pressure [Right] O2 Sat by Pulse 99 100 Oximetry 04/22/20 04/22/20 04/22/20 20:29 20:31 20:33 Temperature Pulse Rate 89 93 H 102 H Respiratory Rate Blood Pressure 125/61 110/58 Blood Pressure [Right] O2 Sat by Pulse 100 Oximetry 04/22/20 04/22/20 04/22/20 20:38 20:43 20:45 Temperature Pulse Rate 101 H 92 H 85 Respiratory Rate Blood Pressure Blood Pressure [Right] O2 Sat by Pulse 100 100 91 Oximetry 04/22/20 04/22/20 04/22/20 20:48 20:53 20:56 Temperature Pulse Rate 97 H 93 H 98 H Respiratory Rate Blood Pressure Blood Pressure [Right] O2 Sat by Pulse 99 98 91 Oximetry 04/22/20 04/22/20 04/22/20 20:58 21:03 21:08 Temperature Pulse Rate 96 H 106 H 101 H Respiratory Rate Blood Pressure 115/72 Blood Pressure [Right] O2 Sat by Pulse 94 100 100 Oximetry 04/22/20 04/22/20 04/22/20 21:13 21:17 21:18 Temperature Pulse Rate 113 H 106 H 96 H Respiratory Rate Blood Pressure 106/53 Blood Pressure [Right] O2 Sat by Pulse 100 95 Oximetry 04/22/20 04/22/20 04/22/20 21:19 21:23 21:28 Temperature Pulse Rate 95 H 101 H 113 H Respiratory Rate Blood Pressure Blood Pressure [Right] O2 Sat by Pulse 87 98 99 Oximetry 04/22/20 04/22/20 04/22/20 21:33 21:34 21:38 Temperature Pulse Rate 83 87 74 Respiratory Rate Blood Pressure 107/55 Blood Pressure [Right] O2 Sat by Pulse 100 100 Oximetry 04/22/20 04/22/20 04/22/20 21:43 21:47 21:48 Temperature Pulse Rate 91 H 96 H 101 H Respiratory Rate Blood Pressure 120/72 Blood Pressure [Right] O2 Sat by Pulse 99 98 Oximetry 04/22/20 04/22/20 04/22/20 21:53 21:58 22:02 Temperature Pulse Rate 87 105 H 78 Respiratory Rate Blood Pressure 130/66 Blood Pressure [Right] O2 Sat by Pulse 100 100 Oximetry 04/22/20 04/22/20 04/22/20 22:03 22:08 22:11 Temperature Pulse Rate 80 82 95 H Respiratory Rate Blood Pressure Blood Pressure [Right] O2 Sat by Pulse 100 100 90 Oximetry 04/22/20 04/22/20 04/22/20 22:13 22:18 22:23 Temperature Pulse Rate 78 85 85 Respiratory Rate Blood Pressure 114/58 Blood Pressure [Right] O2 Sat by Pulse 99 99 99 Oximetry 04/22/20 04/22/20 04/22/20 22:28 22:29 22:33 Temperature Pulse Rate 99 H 70 89 Respiratory Rate Blood Pressure Blood Pressure [Right] O2 Sat by Pulse 98 68 L 99 Oximetry 04/22/20 04/22/20 04/22/20 22:38 22:40 22:43 Temperature Pulse Rate 94 H 81 83 Respiratory Rate Blood Pressure 107/54 Blood Pressure [Right] O2 Sat by Pulse 86 100 Oximetry 04/22/20 04/22/20 04/22/20 22:45 22:48 22:53 Temperature Pulse Rate 86 90 90 Respiratory Rate Blood Pressure Blood Pressure [Right] O2 Sat by Pulse 88 100 100 Oximetry - Exam Breasts: deferred Abdomen: Present: normal appearance, soft Vulva: both: normal Uterus: Present: normal FHR: category 2 FHR comments: FHR with mod cristiane and occ variable Uterine Contraction Monitor Mode: Internal Cervical Dilatation: 5 Cervical Effacement Percentage: 90 station: -2 Uterine Contraction Frequency (min): q3-4 Uterine Contraction Pattern: Regular Uterine Tone Measurement Phase: Resting Uterine Contraction Intensity: Strong/Firm Extremities: normal - Labs Labs: Abnormal Labs 04/22/20 04/22/20 10:30 10:30 RBC 3.12 L Hct 30.1 L MCH 34 H MCHC 35 H Sodium 134 L BUN 6 L Alkaline Phosphatase 134 H Albumin 3.2 L Laboratory Results - last 24 hr 04/22/20 04/22/20 04/22/20 08:00 10:30 10:30 WBC 8.4 RBC 3.12 L Hgb 10.4 Hct 30.1 L MCV 96 MCH 34 H MCHC 35 H RDW 13.9 Plt Count 281 Sodium 134 L Potassium 3.6 Chloride 101.0 Carbon Dioxide 22 Anion Gap 15 BUN 6 L Creatinine 0.6 Estimated GFR > 60 BUN/Creatinine Ratio 10 Glucose 95 POC Glucose Uric Acid 5.1 Calcium 8.8 Total Bilirubin 0.20 AST 12 ALT 7 Alkaline Phosphatase 134 H Total Protein 6.6 Albumin 3.2 L Albumin/Globulin Ratio 0.9 Blood Type O POSITIVE Antibody Screen Negative 04/22/20 21:37 WBC RBC Hgb Hct MCV MCH MCHC RDW Plt Count Sodium Potassium Chloride Carbon Dioxide Anion Gap BUN Creatinine Estimated GFR BUN/Creatinine Ratio Glucose POC Glucose 90 Uric Acid Calcium Total Bilirubin AST ALT Alkaline Phosphatase Total Protein Albumin Albumin/Globulin Ratio Blood Type Antibody Screen
[2020-04-23] MEDS ORDERED: miSOPROStol 200 MCG TAB ONE (00:27)
[2020-04-23] MEDS ORDERED: METHYLERGONOVINE MALEATE 0.2 MG/ML VIAL IM ONE (00:27)
[2020-04-23] MEDS ORDERED: diphenhydrAMINE 25 MG CAP PO PRN (01:12)
[2020-04-23] MEDS ORDERED: LANOLIN/ZINC/DIMETHICONE (LANSINOH) 7 GM TP PRN (01:12)
[2020-04-23] MEDS ORDERED: PROMETHAZINE 25 MG RECT SUPP PR PRN (01:12)
[2020-04-23] MEDS ORDERED: MAGNESIUM HYDROXIDE (MOM) ORAL LIQD UDC PO PRN (01:12)
[2020-04-23] MEDS ORDERED: WITCH HAZEL/ GLYCERIN PAD TP PRN (01:12)
[2020-04-23] MEDS ORDERED: PROMETHAZINE 25 MG TAB PO PRN (01:12)
[2020-04-23] MEDS ORDERED: ONDANSETRON 4 MG/2 ML INJ IV PRN (01:12)
--- NOTE | 2020-04-23 01:36 | Procedure Note ---
OB Delivery Note - Vaginal Delivery presentation: vertex Delivery position: OA Intrapartum events: mult.variable deceleratio Delivery induction: none Delivery augmentation: pitocin Delivery monitor: external FHT, external uterine, internal FHT, internal uterine Route of delivery: Delivery placenta: spontaneous Delivery cord: 3 umbilical vessels Episiotomy: none Delivery laceration: 1st degree, other (perineal) Delivery repair: vicryl Anesthesia: local, epidural Delivery comments: Called to for delivery. SVE 10/100%/+1 and pushing begin. of a viable live female infant in OA position. Spontaneous delivery of head and shoulders with terminal mec noted. Infant was immed placed on mother's chest for skin to skin bonding while nurse stimulated and dried baby. Delayed cord clamping x 90 sec then cord was clamped x 2 and baby's sister was allowed to cut the cord. Afterwards, infant was given to awaiting NICU nurse for an asses. 8/9. Spontaneous delivery of an intact placenta with CVX 3. FF@ U1 with fundal massage and IV Pitocin. Exploration of tears revealed a 1st degree perineal lac which was repaired with a 3-[address]-1. EBL 50 cc. Mom and baby stable. FW [id number] Gms. - Infant A at 1 minute: 8 at 5 minutes: 9 Infant Gender: Female (FW [id number])
[2020-04-23] MEDS: IBUPROFEN 600 MG TAB PO SCH ×3 (03:25→17:45)
[2020-04-23] MEDS ORDERED: NON-FORMULARY EACH (Prenatal Vitamin 1 TAB) PO SCH (10:00)
[2020-04-23] MEDS: PRENATAL VIT27-FE FUMARATE-FOLIC ACID VIT TAB PO SCH (12:27)
[2020-04-23 15:07] LABS: Hematocrit 27.3 % (30.3-42.9); Hemoglobin 9.5 gm/dl (10.1-14.3)
--- NOTE | 2020-04-23 15:50 | Post Anesthesia Evaluation ---
- Post Anesthesia Evaluation Patient Participated: Yes Airway Patent: Yes Stable Respiratory Function: Yes Nausea/Vomiting: No Temp > 96.8F: Yes Pain Manageable: Yes Adequeate Hydration: Yes Anesthesia Complications: No Block Receding Appropriately: Yes
[2020-04-24] MEDS: IBUPROFEN 600 MG TAB PO SCH ×4 (00:56→17:20)
--- NOTE | 2020-04-24 14:06 | Progress Note ---
Assessment and Plan A: day 1 S/P . Anemia. Heart murmur. P: Continue to supplement oral iron. Anticipate discharge home tomorrow if patient continues to do well. Consulted with Dr. Verma re: patient's heart murmur; she states ok for patient to have heart murmur evaluated as an outpatient after hospital discharge. Subjective - Subjective Date of service: 04/24/20 Principal diagnosis: day 1 S/P Interval history: Patient denies shortness of breath, chest pain, fatigue, dizziness, or syncope. Patient reports: appetite normal, voiding normally, pain well controlled, flatus, ambulating normally, no dizzy ambulation, no nauseated [place]: doing well Objective - Vital Signs Latest vital signs: Vital Signs Temp Pulse Resp BP Pulse Ox 04/24/20 08:16 97.9 F 82 18 139/88 96 04/24/20 01:36 16 04/24/20 01:21 98.0 F 85 20 119/75 99 Intake and Output 04/23/20 04/24/20 04/24/20 23:59 07:59 15:59 Intake Total 480 240 Balance 480 240 Intake: Oral 480 240 Other: Total, Intake Amount 240 240 # Voids Void 1 1 - Exam Cardiovascular: Present: Regular rate, Other (murmur heard) Lungs: Present: Clear to auscultation Abdomen: Present: normal appearance, soft, normal bowel sounds. Absent: distention, tenderness, guarding, rigidity Uterus: Present: normal, firm, fundal height below umbilicus. Absent: bogginess, tenderness Extremities: Present: normal. Absent: tenderness, edema - Labs Labs: Abnormal lab results 04/23/20 Range/Units 14:45 Hgb 9.5 L (10.1-14.3) gm/dl Hct 27.3 L (30.3-42.9) %
[2020-04-24] MEDS: PRENATAL VIT27-FE FUMARATE-FOLIC ACID VIT TAB PO SCH (17:18)
[2020-04-25] MEDS: IBUPROFEN 600 MG TAB PO SCH ×4 (00:44→18:00)
[2020-04-25] MEDS: FERROUS SULFATE 325 MG TAB PO SCH ×3 (00:46→23:15)
[2020-04-25] MEDS: PRENATAL VIT27-FE FUMARATE-FOLIC ACID VIT TAB PO SCH (09:50)
[2020-04-25 14:18] LABS: Basophils % (Auto) 0.1 % (0.0-1.8); Eosinophils # (Auto) 0.1 K/mm3 (0.0-0.4); Eosinophils % (Auto) 1.1 % (0.0-4.3); Hematocrit 30.6 % (30.3-42.9); Hemoglobin 10.9 gm/dl (10.1-14.3); Lymphocytes # (Auto) 0.6 K/mm3 (1.2-5.4); Lymphocytes % (Auto) 6.2 % (13.4-35.0); Mean Corpuscular HGB Conc 36 % (30-34); Mean Corpuscular Volume 97 fl (79-97); Monocytes # (Auto) 0.5 K/mm3 (0.0-0.8); Monocytes % (Auto) 4.7 % (0.0-7.3); Platelet Count 289 K/mm3 (140-440); Red Blood Count 3.16 M/mm3 (3.65-5.03); Red Cell Distribution Width 13.6 % (13.2-15.2)
[2020-04-25 14:32] LABS: Alanine Aminotransferase 10 units/L (7-56); Albumin 3.1 g/dL (3.9-5); Blood Urea Nitrogen 9 mg/dL (7-17); Hemolysis Index 8; Uric Acid 4.2 mg/dL (3.5-7.6)
[2020-04-25 14:37] LABS: BUN/Creatinine Ratio 15
[2020-04-25 18:24] LABS: Bacteria,Urine 1+ /HPF (Negative); Bilirubin,Urine NEG (Negative); Blood,Urine LG (Negative); Color,Urine Yellow (Yellow); Mucus,Urine 1+ /HPF; Urobilinogen,Urine < 2.0 mg/dL (<2.0)
[2020-04-25 18:31] LABS: RBC,Urine > 182.0 /HPF (0.0-6.0); WBC,Urine > 182.0 /HPF (0.0-6.0)
--- NOTE | 2020-04-25 19:40 | Progress Note ---
Assessment and Plan A: day 2 S/P . Anemia. Heart murmur. Intermittently elevated blood pressure. P: Continue iron supplementation. Monitor BP. Preeclamptic labs. Plan is to evaluate heart murmur as an outpatient after hospital discharge. Subjective - Subjective Date of service: 04/25/20 Principal diagnosis: day 2 S/P Interval history: Patient denies headache, visual disturbance, nausea or vomiting, shortness of breath, chest pain, fatigue, dizziness, or syncope. Several elevated blood pressures noted. Preeclamptic labs ordered. Patient reports: appetite normal, voiding normally, pain well controlled, flatus, ambulating normally, nauseated, no dizzy ambulation [place]: doing well Objective - Vital Signs Latest vital signs: Vital Signs Temp Pulse Resp BP Pulse Ox 04/25/20 15:39 98.7 F 89 18 130/62 96 04/25/20 07:45 97.9 F 70 18 124/71 97 04/25/20 00:31 98.2 F 83 18 131/85 93 Intake and Output 04/25/20 04/25/20 04/25/20 07:59 15:59 23:59 Intake Total 607 284 3227 Balance 781 880 2624 Intake: Oral 480 240 480 Intake, Free Water 600 Other: Total, Intake Amount 240 240 480 # Voids Void 1 1 3 - Exam Cardiovascular: Present: Regular rate, Other (murmur heard) Lungs: Present: Clear to auscultation Abdomen: Present: normal appearance, soft, normal bowel sounds. Absent: distent ion, tenderness, guarding, rigidity Uterus: Present: normal, firm, fundal height below umbilicus. Absent: bogginess, tenderness Extremities: Present: normal. Absent: tenderness, edema - Labs Labs: Abnormal lab results 04/25/20 04/25/20 04/25/20 Range/Units 13:42 13:42 18:00 RBC 3.16 L (3.65-5.03) M/mm3 MCH 34 H (28-32) pg MCHC 36 H (30-34) % Lymph % (Auto) 6.2 L (13.4-35.0) % Lymph # (Auto) 0.6 L (1.2-5.4) K/mm3 Seg Neutrophils % 87.9 H (40.0-70.0) % Seg Neutrophils # 9.2 H (1.8-7.7) K/mm3 Sodium 136 L (137-145) mmol/L Glucose 108 H (65-100) mg/dL Lactate Dehydrogenase 191 H (91-180) units/L Albumin 3.1 L (3.9-5) g/dL Urine WBC (Auto) > 182.0 H (0.0-6.0) /HPF
[2020-04-26] MEDS: IBUPROFEN 600 MG TAB PO SCH ×2 (04:34→06:25)
[2020-04-26] MEDS: FERROUS SULFATE 325 MG TAB PO SCH (09:47)
[2020-04-26] MEDS: PRENATAL VIT27-FE FUMARATE-FOLIC ACID VIT TAB PO SCH (09:47)
--- NOTE | 2020-04-26 12:12 | Progress Note ---
Assessment and Plan A: Day #3 GDM Intermittently elevated blood pressure; Asymptomatic P: Follow routine orders Return to office in 2 weeks for BP recheck Return to office in 8 weeks for 2-hr GTT D/C home today per pt request Subjective - Subjective Date of service: 04/26/20 Principal diagnosis: day 3 S/P Patient reports: appetite normal, voiding normally, pain well controlled, bowel movement, ambulating normally, other (Denies any headaches, visual changes, N&V, abd pain) : doing well, bottle feeding (and ) Objective - Vital Signs Latest vital signs: Vital Signs Temp Pulse Resp BP Pulse Ox 04/26/20 07:41 98.2 F 79 18 134/87 97 04/26/20 06:25 18 04/26/20 04:34 18 04/26/20 00:18 98.6 F 88 18 133/90 95 04/25/20 15:39 98.7 F 89 18 130/62 96 Intake and Output 04/25/20 04/26/20 04/26/20 22:59 06:59 14:59 Intake Total 1080 180 240 Output Total 200 Balance 1080 -20 240 Intake: Oral 480 180 240 Intake, Free Water 600 Output: Urine 200 Void 200 Other: Total, Intake Amount 480 180 240 Total, Output Amount 200 # Voids Void 3 1 1 - Exam Breasts: Present: normal Cardiovascular: Present: Regular rate Lungs: Present: Clear to auscultation, Normal air movement Abdomen: Present: normal appearance, soft, normal bowel sounds Uterus: Present: normal, firm, fundal height below umbilicus Extremities: Present: normal - Labs Labs: Abnormal lab results 04/25/20 04/25/20 04/25/20 Range/Units 13:42 13:42 18:00 RBC 3.16 L (3.65-5.03) M/mm3 MCH 34 H (28-32) pg MCHC 36 H (30-34) % Lymph % (Auto) 6.2 L (13.4-35.0) % Lymph # (Auto) 0.6 L (1.2-5.4) K/mm3 Seg Neutrophils % 87.9 H (40.0-70.0) % Seg Neutrophils # 9.2 H (1.8-7.7) K/mm3 Sodium 136 L (137-145) mmol/L Glucose 108 H (65-100) mg/dL Lactate Dehydrogenase 191 H (91-180) units/L Albumin 3.1 L (3.9-5) g/dL Urine WBC (Auto) > 182.0 H (0.0-6.0) /HPF
--- NOTE | 2020-04-26 12:15 | Discharge Summary ---
Providers - Providers Date of Admission: 04/22/20 07:21 Date of discharge: 04/26/20 Attending physician: JULIANA BRYAN MD Primary care physician: [facility] Hospitalization Reason for admission: rupture of membranes, IUP at term Delivery: Episiotomy: none Laceration: 1st degree Other procedures: none complications: none Discharge diagnosis: IUP at term delivered baby: female Condition at discharge: Good Disposition: DC-01 TO HOME OR SELFCARE Plan - Provider Discharge Summary Additional instructions: [] Smoking cessation referral if applicable(refer to patient education folder for contact #) [] Refer to [facility]'s [facility] Booklet Call your doctor immediately for: * Fever > 100.5 * Heavy vaginal bleeding ( >1 pad per hour) * Severe persistent headache * Shortness of breath * Reddened, hot, painful area to leg or breast * Drainage or odor from incision. * Keep incision clean and dry at all times and follow doctor's instructions regarding bathing/showering - Follow up plan Follow up: PRIMARY CAREMD [Primary Care Provider] - 14 Days Forms: [facility] Discharge Summary
[2020-04-26 17:24] VITALS: BP 131/73
== END 2020-04-26 19:56 | disposition home or self-care (01) | DRG 775 ==
LOC: LD 07:21 → OB 04-23 04:26
PROVIDERS: ADMIT Obstetrics & Gynecology; ATTEND Obstetrics & Gynecology
PROC: 10E0XZZ Delivery of Products of Conception, External Approach (ICD-10-PCS; principal; 2020-04-23)
PROC: 10H07YZ Insertion of Other Device into Products of Conception, Via Natural or Artificial Opening (ICD-10-PCS; 2020-04-23)
PROC: 0HQ9XZZ Repair Perineum Skin, External Approach (ICD-10-PCS; 2020-04-23)
PROC: 3E0R3BZ Introduction of Anesthetic Agent into Spinal Canal, Percutaneous Approach (ICD-10-PCS; 2020-04-23)
PROC: 00HU33Z Insertion of Infusion Device into Spinal Canal, Percutaneous Approach (ICD-10-PCS; 2020-04-23)
DX: O24.420 Gestational diabetes mellitus in childbirth, diet controlled (principal); Z3A.40 40 weeks gestation of pregnancy; Z37.0 Single live birth; Z20.828 Contact with and (suspected) exposure to other viral communicable diseases; Z12.4 Encounter for screening for malignant neoplasm of cervix; O76 Abnormality in fetal heart rate and rhythm complicating labor and delivery; O75.89 Other specified complications of labor and delivery; O90.81 Anemia of the puerperium; R03.0 Elevated blood-pressure reading, without diagnosis of hypertension; O70.0 First degree perineal laceration during delivery; O77.0 Labor and delivery complicated by meconium in amniotic fluid
CPT/HCPCS: 36415; 80053; 81001; 82962; 83615; 84550; 85014; 85018; 85025; 85027; 86850; 86900; 86901; 87086; G0378; J2590; J7120; U0003

== ENCOUNTER 2021-10-07 09:54 | Emergency (ER) | payer MEDICAID | END 2021-10-07 14:35 | disposition left against medical advice (07) | LOC: ED 09:54 | DX: R51.9 Headache, unspecified (principal); Z53.21 Procedure and treatment not carried out due to patient leaving prior to being seen by health care provider ==